=== PATIENT | female | born 1990 | race Caucasian/White ===

== ENCOUNTER → 2016-10-20 | Outpatient (CLI) | payer BC, OTHER ==
[2016-10-20 16:02] LABS: CHLORIDE,CL 106 mmol/L (98-110); SODIUM,NA 140 mmol/L (136-146)
== END ==
LOC: MW.CHFP 15:27
PROVIDERS: ATTEND Physician Assistant
DX: Z01.818 Encounter for other preprocedural examination (principal)
CPT/HCPCS: 36415; 80048; 81001; 85025; 85610; 85730; 87086; 87088; 87186; 93005

== ENCOUNTER → 2016-10-30 | Outpatient (CLI) | payer OTHER | END | disposition home or self-care (01) | LOC: MW.CHFP 09:28 | PROVIDERS: ATTEND Physician Assistant | DX: N39.0 Urinary tract infection, site not specified (principal) | CPT/HCPCS: 87086 ==

== ENCOUNTER 2016-11-03 08:34 | Day surgery (SDC) | payer OTHER ==
[~2016-11-03 08:34] MED LIST: Lidocaine 2% 5 ML SDV ONE; Midazolam 1 MG/ML 2 ML SDV ONE; Ondansetron 4 MG/2 ML SDV ONE; Propofol 200 MG/20 ML SDV ONE; Rocuronium 10 MG/ML 10 ML Syringe ONE; Scopolamine 1.5 MG Transdermal Patch TRDERM PRN; fentaNYL 250 MCG/5 ML SDV ONE
--- NOTE | 2016-11-03 08:58 | PCM.PREANE ---
Preanesthetic Assessment - Anesthesia/Transfusion/Family Hx Anesthesia History: Prior Anesthesia Without Reaction Family History of Anesthesia Reaction: No Transfusion History: No Prior Transfusion(s) Intubation History: Unknown - Review of Systems General: No Symptoms Pulmonary: No Symptoms Cardiovascular: No Symptoms Gastrointestinal: No symptoms Neurological: Difficulty Walking (with left foot in cast/ non-healed metatarsal fracture) Other: Reports: Depression (on meds), Anxiety - Physical Assessment NPO Status Date: 11/02/16 NPO Status Time: 23:00 Height: 5 ft 8 in Weight: 200 lb ASA Class: 2 Mental Status: Alert & Oriented x3 Airway Class: Mallampati = 1 Dentition: Reports: Normal Dentition Thyro-Mental Finger Breadths: 4 Mouth Opening Finger Breadths: 3 ROM/Head Extension: Full Lungs: Clear to auscultation, Normal respiratory effort Cardiovascular: Regular Rate, Regular Rhythm, No Murmurs - Allergies Allergies/Adverse Reactions: Allergies Allergy/AdvReac Type Severity Reaction Status Date / Time codeine Allergy Cannot Verified 11/02/16 08:32 Remember - Blood Blood Available: No Product(s) Available: None - Acknowledgements Anesthesia Type Planned: General Anesthesia Pt an Appropriate Candidate for the Planned Anesthesia: Yes Alternatives and Risks of Anesthesia Discussed w Pt/Guardian: Yes Pt/Guardian Understands and Agrees with Anesthesia Plan: Yes PreAnesthesia Questionnaire HEENT History: Gastrointestinal History: Reports: None Musculoskeletal History: Reports: Other (see below) Other Musculoskeletal History: presently has fx foot Psychiatric History: Reports: Anxiety, Depression Endocrine/Metabolic History: Reports: Obesity/BMI 30+ - Past Surgical History Head Surgeries/Procedures: Reports: None GI Surgical History: Reports: Cholecystectomy, Other (see below) Other GI Surgeries/Procedures: hx lap bisi - SUBSTANCE USE Smoking Status *Q: Never Smoker Recreational Drug Use History: No - HOME MEDS Home Medications: Home Meds Fluticasone Propionate [Flonase Allergy Relief] 1 spray NASBOTH BID 11/02/16 [ History] Montelukast [Singulair] 10 mg PO DAILY 11/02/16 [History] Vortioxetine Hydrobromide [Trintellix] 10 mg PO DAILY 11/02/16 [History] Zolpidem Tartrate 10 mg PO BEDTIME PRN 11/02/16 [History] buPROPion HCl [Wellbutrin Xl] 150 mg PO DAILY 11/02/16 [History] - CURRENT (IN HOUSE) MEDS Current Meds: Current Medications Lactated Ringer's (Ringers, Lactated) 1,000 mls @ 125 mls/hr IV ASDIRECTED NATHEN Cefazolin Sodium/Dextrose 2 gm (/ Premix) 50 mls @ 100 mls/hr IV ONETIME ONE Stop: 11/03/16 10:29 Scopolamine (Transderm-Scop) 1.5 mg TRDERM .ONCE PRN PRN Reason: Post Op Nausea Discontinued Medications Fentanyl (Sublimaze) Confirm Administered Dose 250 mcg .ROUTE .STK-MED ONE Stop: 11/03/16 08:23 Lidocaine (Xylocaine-Mpf 2%) Confirm Administered Dose 5 ml .ROUTE .STK-MED ONE Stop: 11/03/16 08:22 Midazolam HCl (Versed 1 Mg/Ml) Confirm Administered Dose 2 mg .ROUTE .STK-MED ONE Stop: 11/03/16 08:23 Ondansetron HCl (Zofran) Confirm Administered Dose 4 mg .ROUTE .STK-MED ONE Stop: 11/03/16 08:22 Propofol (Diprivan 20 Ml) Confirm Administered Dose 200 mg .ROUTE .STK-MED ONE Stop: 11/03/16 08:23 Rocuronium Buford (Zemuron) Confirm Administered Dose 100 mg .ROUTE .STK-MED ONE Stop: 11/03/16 08:22 Preanesthetic Assessment - ANESTHESIA/TRANSFUSION/FAMILY HX Family History of Anesthesia Reaction: No - PHYSICAL ASSESSMENT Height: 5 ft 8 in Weight: 200 lb NPO Status Date: 11/02/16 NPO Status Time: 23:00 - ALLERGIES Allergies/Adverse Reactions: Allergies Allergy/AdvReac Type Severity Reaction Status Date / Time codeine Allergy Cannot Verified 11/02/16 08:32 Remember
[2016-11-03] MEDS ORDERED: Bupivacaine 0.5% 10 ML SDV ONE (09:25)
[2016-11-03] MEDS ORDERED: Lidocaine 1% 20 ML MDV ONE (09:25)
[2016-11-03] MEDS ORDERED: fentaNYL 100 MCG/2 ML SDV IVPUSH PRN (09:56)
[2016-11-03] MEDS ORDERED: Lactated Ringers 1,000 ML IV SCH (10:00)
[2016-11-03] MEDS ORDERED: ceFAZolin 2 GM in Premix Bag 1 BAG IV ONE (10:00)
[2016-11-03] MEDS ORDERED: Sodium Chloride 0.9% 20 ML ONE (10:19)
[2016-11-03] MEDS ORDERED: ceFAZolin 1 GM Vial ONE (10:19)
[2016-11-03] MEDS ORDERED: ePHEDrine 50 MG/ML SDV ONE (10:35)
[2016-11-03] MEDS ORDERED: Phenylephrine/Normal Saline 100 MCG/ML 10 ML Syringe ONE (11:10)
[2016-11-03] MEDS ORDERED: Metoprolol Tartrate 5 MG/5 ML SDV ONE (11:18)
[2016-11-03] MEDS ORDERED: Dexamethasone 4 MG/ML 5 ML MDV ONE (11:26)
[2016-11-03] MEDS ORDERED: fentaNYL 100 MCG/2 ML SDV ONE (11:40)
--- NOTE | 2016-11-03 12:09 | PN ---
This document was incomplete and redictated after the first one cut off prematurely. MTDD
--- NOTE | 2016-11-03 12:11 | PCM.OPNOTE ---
- General Post-Op/Procedure Note Date of Surgery/Procedure: 11/03/16 Operative Procedure(s): open reduction with internal fixation fifth metatarsal fracture left foot Findings: consistent with diagnosis Pre Op Diagnosis: left fifth metatarsal fracture Post-Op Diagnosis: left fifth metatarsal fracture Anesthesia Technique: General LMA Primary Surgeon: Rocky Arzola Pathology: none EBL in mLs: 5 Complications: none Condition: Good Free Text/Narrative:: injectables: 10 ml 0.5% marcaine plain materials: hhgregg cannulated partially threaded titanium screw measuring 44 mm length x 5.0 mm diameter 4-0 vicryl 4-0 prolene
[2016-11-03] MEDS ORDERED: Acetaminophen 1,000 MG in Premix Bag 1 BAG IV ONE (13:17)
--- NOTE | 2016-11-03 13:36 | PN ---
IDENTIFICATION: The patient is a 26-year-old female. DATE OF SURGERY: November 03, 2016. SURGEON: Rocky Arzola DPM. PREOPERATIVE DIAGNOSIS: Fracture of fifth metatarsal, left foot. PLANNED PROCEDURE: Open reduction with internal fixation of fracture of fifth metatarsal, left foot. Consent is signed and in the chart. Anesthesia general. The patient confirms n.p.o. since midnight. History and physical completed by Dr. Harris with no contraindications to surgery. ALLERGIES: To codeine. PAST SURGICAL HISTORY: Laparoscopic cholecystectomy. No noted active medications. LABORATORY DATA: White blood cell count 11.95, hemoglobin 13.1, hematocrit 38.0, platelets 324. INR 0.96 and PTT 26.4. Sodium 140, potassium 3.9, chloride 106, CO2 is 24, BUN 14, creatinine is 0.8, glucose 98. Urinalysis is unremarkable. IMAGING: EKG was noted as normal by the primary physician. ASSESSMENT AND PLAN: The patient has resolved her UTI that was present and noted at the time of the H and P. The patient presents for surgical correction of fracture of the left foot fifth metatarsal fracture. No guarantees expressed or implied. THERESA / ISELA /[id number]
[2016-11-03] MEDS ORDERED: Haloperidol Lactate 5 MG/ML SDV IM ONE (13:45)
[2016-11-03] MEDS ORDERED: HALOPERIDOL LACTATE IV ONE ×2 (13:45)
[2016-11-03] MEDS ORDERED: DEXTROSE 5% IV ONE ×2 (13:45)
[2016-11-03] MEDS ORDERED: WATER IV ONE ×2 (13:45)
--- NOTE | 2016-11-03 14:04 | PCM.POSTAN ---
POST ANESTHESIA ASSESSMENT - MENTAL STATUS Mental Status: alert, oriented - RESPIRATORY Respiratory Status: respiratory rate WNL, airway patent - CARDIOVASCULAR CV Status: pulse rate WNL, blood pressure stable - GASTROINTESTINAL GI Status: no symptoms - PAIN Pain Score: 7 - POST OP HYDRATION Hydration Status: adequate & stable
[2016-11-03] MEDS ORDERED: oxyCODONE 5 MG Tab PO PRN (14:21)
--- NOTE | 2016-11-03 14:48 | PCM48HPAN ---
Post Anesthesia Note - EVALUATION WITHIN 48HRS OF ANESTHETIC Vital Signs in Normal Range: Yes Patient Participated in Evaluation: Yes Respiratory Function Stable: Yes Airway Patent: Yes Cardiovascular Function Stable: Yes Hydration Status Stable: Yes Pain Control Satisfactory: Yes Nausea and Vomiting Control Satisfactory: Yes Mental Status Recovered: Yes
--- NOTE | 2016-11-03 18:09 | OR ---
SURGEON: Rocky Arzola DPM DATE OF PROCEDURE: 11/03/2016 PREOPERATIVE DIAGNOSIS: Fracture of 5th metatarsal, left foot. POSTOPERATIVE DIAGNOSIS: Fracture of 5th metatarsal, left foot. PROCEDURE: Open reduction with internal fixation of 5th metatarsal fracture, left foot. FINDINGS: Consistent with diagnosis. ANESTHESIA: General LMA. HEMOSTASIS: An above ankle pneumatic tourniquet inflated to a pressure of 250 mmHg after an Esmarch bandage exsanguination of the left lower extremity. PATHOLOGY: None. ESTIMATED BLOOD LOSS: 5 mL. COMPLICATIONS: None. CONDITION: The patient tolerated the procedure and the anesthesia well with no complications noted and recovered without any complications from both the procedure and the anesthesia. JUSTIFICATION FOR PROCEDURE: The patient is a 26-year-old female, who suffered a fracture to the base of the 5th metatarsal of the left foot, approximately one month ago and has been treated conservatively since then. However, due to the lack of sufficient findings on x-ray to indicate that the fracture clearly is forming a union, the patient was given the option to go to surgery as I cannot guarantee that without surgery that this will not develop to be a nonunion. The patient did elect for surgery and presents for surgical correction today. PROCEDURE IN DETAIL: The patient was brought to the operating room from the preoperative area and placed on the operating table in a supine position and was then induced with anesthesia as described above. The patient was then rotated into a semi-lateral decubitus position, and an aseptic scrub and drape was performed in the usual aseptic manner. Preoperative fluoroscopy was utilized to plan the incision site and a 2 cm linear incision was made running from the base of the 5th metatarsal of the left foot and running proximally. This incision was then deepened using a curved mosquito hemostat, and a sharp dissection where needed. Any small bleeders were cauterized, ligated by Bovie as needed. The peroneal brevis and longus tendons were identified, , and the base of the 5th metatarsal was then accessible for the insertion of a K-wire. The intraoperative fluoroscopy was used throughout this procedure to verify positioning of all hardware. The K-wire was affixed to a drill and was advanced from proximal to distal through the shaft of the 5th metatarsal until it was deemed to be in proper position terminating at the curvature on the midshaft of the 5th metatarsal of the left foot, but not advancing distal to that point. Measurement was taken and a 5.0 x 44 mm Steve titanium partially-threaded cannulated screw was selected along with an appropriate washer. The K-wire which was still positioned was used to guide the drill bit, and the drill was advanced to approximately midshaft of the 5th metatarsal in preparation for insertion of the screw. Drill was removed. The countersink was then inserted over the K-wire to prepare the surface and then removed followed by insertion over the K-wire of the screw and washer combination. The screw was then advanced under intraoperative fluoroscopy until it was properly positioned with the washer and the head of the screw abutting the base of the 5th metatarsal of the left foot. Fixation was deemed to be excellent as well as the positioning. Images were taken both the AP, oblique, and lateral views. All confirming proper placement of the hardware and the K-wire was withdrawn, and final fluoroscopy shots were taken. The deep and subcutaneous tissue was then reapproximated using 4-0 Vicryl suture after copious flushing of the surgical site with normal sterile saline. Following closure of the subcutaneous layer with 4-0 Vicryl suture, 4-0 Prolene suture was used to reapproximate the superficial skin. Betadine soaked Xeroform gauze was then placed over the incision site and this was followed by Kerlix gauze, Kerlix roll, stockinette, Webril, cast padding, and a posterior splint which was then secured with three Reed bandages. The pneumatic ankle tourniquet was deflated at a time of 55 minutes, and the patient was noted to have a prompt hyperemic response to all digits of the left foot and following a brief period in the operating room, was then transferred to the recovery room and following a brief stay in recovery room, the patient is to be discharged home. She has written as well as oral instructions for postoperative care for followup next week in my office, and she has a prescription for analgesic care. The patient also has been given my cell phone number as has her sister in the event that any concerns arise after business hours or over the weekend. THERESA / ISELA /[id number] FRANKLIN
--- NOTE | 2016-11-14 14:41 | CR ---
EXAMINATION: Foot HISTORY: Surgery COMPARISON: None TECHNIQUE: Single view FINDINGS/IMPRESSION: Operative control films demonstrate a single screw fixating what appears to be the base of the fifth metatarsal.
== END 2016-11-03 15:00 | disposition home or self-care (01) ==
LOC: MW.SDS 08:34
PROVIDERS: ATTEND Podiatrist Foot & Ankle Surgery
DX: S92.352A Displaced fracture of fifth metatarsal bone, left foot, initial encounter for closed fracture (principal); N39.0 Urinary tract infection, site not specified; F41.9 Anxiety disorder, unspecified; F32.9 Major depressive disorder, single episode, unspecified; Z88.8 Allergy status to other drugs, medicaments and biological substances; Z90.49 Acquired absence of other specified parts of digestive tract
CPT/HCPCS: 28485; 81025; A9270; J0690; J1100; J1630; J2250; J2405; J3010; J7120; 01480; 76000; 76000-26; C1713; J2704

== ENCOUNTER 2018-09-26 19:18 | Emergency (ER) | payer OTHER ==
--- NOTE | 2018-09-26 19:56 | EDM.PDOC ---
ED HPI GENERAL MEDICAL PROBLEM - General Chief Complaint: Respiratory Problem Stated Complaint: COUGH, FEVER, ACHE Time Seen by Provider: 09/26/18 19:56 Source of Information: Reports: Patient History Limitations: Reports: No Limitations - History of Present Illness INITIAL COMMENTS - FREE TEXT/NARRATIVE: HISTORY AND PHYSICAL: History of present illness: Patient is a 28-year-old female here with complaint flu-like symptoms. She states it came on suddenly today and she has been having chills and sweats, dry cough, nasal congestion, ear pressure, lack of appetite. She denies any nausea, vomiting, diarrhea, abdominal pain, chest pain, shortness of breath. Review of systems: As per history of present illness and below otherwise all systems reviewed and negative. Past medical history: As per history of present illness and as reviewed below otherwise noncontributory. Surgical history: As per history of present illness and as reviewed below otherwise noncontributory. Social history: No reported history of drug or alcohol abuse. Family history: As per history of present illness and as reviewed below otherwise noncontributory. Physical exam: General: Patient sitting comfortably in no acute distress and nontoxic appearing HEENT: Atraumatic, normocephalic, pupils reactive, negative for conjunctival pallor or scleral icterus, mucous membranes moist, throat clear, neck supple, nontender, trachea midline. No meningeal signs. Lungs: Clear to auscultation, breath sounds equal bilaterally, chest nontender. Heart: S1S2, regular, negative for clicks, rubs, or overt murmur. Abdomen: Soft, nondistended, nontender. Negative for masses or hepatosplenomegaly. Negative for costovertebral tenderness. Pelvis: Stable nontender. Genitourinary: Deferred. Rectal: Deferred. Extremities: Atraumatic, negative for cords or calf pain. Neurovascular unremarkable. Neuro: Awake, alert, oriented. Cranial nerves II through XII unremarkable. Cerebellum unremarkable. Motor and sensory unremarkable throughout. Exam nonfocal. Notes: Discussed that influenza is negative, she is requesting script for tamiflu anyway as she is going on vacation soon and is concerned it could still be influenza. Diagnostics: Influenza Therapeutics: None Prescriptions: Tamilfu Impression: Viral URI Plan: 1. May take tamiflu as instructed. Drink plenty of fluids and alternate tylenol and motrin as needed. 2. Follow up with primary care provider 3. Return to ED as needed as discussed Definitive disposition and diagnosis as appropriate pending reevaluation and review of above. Generalized Pain Score (Numeric/FACES): 8 - Related Data Allergies Allergy/AdvReac Type Severity Reaction Status Date / Time codeine Allergy Nausea Verified 09/26/18 19:52 Home Meds: Home Meds Fluticasone Propionate [Flonase Allergy Relief] 1 spray NASBOTH BID 11/02/16 [ History] Montelukast [Singulair] 10 mg PO BEDTIME 11/02/16 [History] Vortioxetine Hydrobromide [Trintellix] 10 mg PO BEDTIME 11/02/16 [History] Zolpidem Tartrate 10 mg PO BEDTIME PRN 11/02/16 [History] buPROPion HCl [Wellbutrin Xl] 150 mg PO DAILY 11/02/16 [History] Fexofenadine [Tyra] 60 mg PO BEDTIME 09/26/18 [History] Past Medical History Gastrointestinal History: Reports: None Musculoskeletal History: Reports: Other (See Below) Other Musculoskeletal History: presently has fx foot Psychiatric History: Reports: Anxiety, Depression Endocrine/Metabolic History: Reports: Obesity/BMI 30+ - Past Surgical History GI Surgical History: Reports: Cholecystectomy, Other (See Below) ED ROS GENERAL - Review of Systems Review Of Systems: ROS reveals no pertinent complaints other than HPI. ED EXAM, GENERAL - Physical Exam Exam: See Below (see dictation) Course - Vital Signs Last Recorded V/S: Last Vital Signs Temp 96.6 F 09/26/18 19:49 Pulse 123 H 09/26/18 19:49 Resp 18 09/26/18 19:49 BP 138/82 09/26/18 19:49 Pulse Ox 95 09/26/18 19:49 Departure - Departure Time of Disposition: 20:48 Disposition: Home, Self-Care 01 Condition: Good Clinical Impression: Viral URI - Discharge Information Referrals: PCP,None [Primary Care Provider] - Forms: ED Department Discharge Additional Instructions: The following information is given to patients seen in the emergency department who are being discharged to home. This information is to outline your options for follow-up care. We provide all patients seen in our emergency department with a follow-up referral. The need for follow-up, as well as the timing and circumstances, are variable depending upon the specifics of your emergency department visit. If you don't have a primary care physician on staff, we will provide you with a referral. We always advise you to contact your personal physician following an emergency department visit to inform them of the circumstance of the visit and for follow-up with them and/or the need for any referrals to a consulting specialist. The emergency department will also refer you to a specialist when appropriate. This referral assures that you have the opportunity for follow-up care with a specialist. All of these measure are taken in an effort to provide you with optimal care, which includes your follow-up. Under all circumstances we always encourage you to contact your private physician who remains a resource for coordinating your care. When calling for follow-up care, please make the office aware that this follow-up is from your recent emergency room visit. If for any reason you are refused follow-up, please contact the [facility] Emergency Department at and asked to speak to the emergency department charge nurse. [facility] [address] [place] [address] [id number] [address] 1. May take tamiflu as instructed. Drink plenty of fluids and alternate tylenol and motrin as needed. 2. Follow up with primary care provider 3. Return to ED as needed as discussed
== END 2018-09-26 21:03 | disposition home or self-care (01) ==
LOC: MW.ED 19:18
DX: J06.9 Acute upper respiratory infection, unspecified (principal); F41.9 Anxiety disorder, unspecified; F32.9 Major depressive disorder, single episode, unspecified; Z88.5 Allergy status to narcotic agent; Z79.899 Other long term (current) drug therapy
CPT/HCPCS: 87804; 99283

== ENCOUNTER 2024-04-19 16:57 | Emergency (ER) | payer OTHER ==
[2024-04-19] MEDS ORDERED: Sodium Chloride 0.9% 10 ML Syringe FLUSH PRN (17:07)
[2024-04-19 17:21] LABS: BASE EXCESS VENOUS -0.7 (-2.0-3.0); BICARBONATE,VENOUS 25 mEQ/mL (22-28); PCO2 VENOUS 42 mmHG (41-51); PH,VENOUS 7.38 (7.31-7.41)
[2024-04-19 17:22] LABS: BASOPHILS ABSOLUTE AUTO 0.04 K/uL (0.00-0.20); BASOPHILS PERCENT AUTO 0.4 % (0.0-1.0); EOSINOPHILS ABSOLUTE AUTO 0.08 K/uL (0.00-0.45); EOSINOPHILS PERCENT AUTO 0.7 % (0.0-6.0); HEMATOCRIT 40.9 % (37.0-47.0); HEMOGLOBIN 14.4 g/dL (12.0-16.0); IMMATURE GRAN ABSOLUTE AUTO 0.04 K/uL (0.00-0.05); IMMATURE GRAN PERCENT AUTO 0.4 % (0.0-0.4); LYMPHOCYTES ABSOLUTE AUTO 3.34 K/uL (1.00-4.80); MEAN CORPUSCULAR HEMOGLOBIN 29.4 pg (28.0-32.0); MEAN CORPUSCULAR HGB CONC 35.2 g/dL (32.0-36.0); MEAN CORPUSCULAR VOLUME 83.5 fL (83.0-99.0); MEAN PLATELET VOLUME 10.4 fL (9.4-12.3); MONOCYTES ABSOLUTE AUTO 0.75 K/uL (0.00-0.80); NEUTROPHILS ABSOLUTE AUTO 6.52 K/uL (1.80-7.70); NEUTROPHILS PERCENT AUTO 60.5 % (41.0-71.0); PLATELET COUNT,PLT 347 K/uL (150-400); WHITE BLOOD CELL COUNT,WBC 10.77 K/uL (3.9-11.3)
[2024-04-19 17:33] LABS: PO2 VENOUS < 30 mmHG (35-45)
[2024-04-19 17:45] LABS: A/G RATIO 1.1 (0.9-1.6); ALBUMIN 4.4 g/dL (3.4-5.0); BILIRUBIN TOTAL 0.8 mg/dL (0.2-1.0); CALCIUM 9.6 mg/dL (8.5-10.1); CARBON DIOXIDE,CO2 26.4 mmol/L (21.0-32.0); EST CRCL DRUG DOSING (CG) 76.36 mL/min; POTASSIUM,K 3.2 mmol/L (3.5-5.1); PROTEIN TOTAL,TP 8.4 g/dL (6.4-8.2)
[2024-04-19] MEDS: Potassium Chloride 20 MEQ Tab.ER PO ONE (18:29)
== END 2024-04-19 18:32 | disposition home or self-care (01) ==
LOC: MW.ED 16:57
DX: R19.7 Diarrhea, unspecified (principal); R20.2 Paresthesia of skin; E66.9 Obesity, unspecified; Z79.899 Other long term (current) drug therapy; Z88.5 Allergy status to narcotic agent; Z68.30 Body mass index [BMI] 30.0-30.9, adult
CPT/HCPCS: 36415; 80053; 82803; 83735; 84703; 85025; 99284; A9270; 99282